=== PATIENT | male | born 1980 | race Two or more races ===

== ENCOUNTER 2020-05-05 13:33 | Emergency (ER) | payer OTHER ==
[~2020-05-05] VITALS: Ht 154.9 cm; Wt 72.7 kg
[2020-05-05] MEDS ORDERED: IV NORMAL SALINE 1000ML BAG 1,000 ML IV ONE (14:15)
[2020-05-05] MEDS ORDERED: KETOROLAC 15 MG/ML VIAL. IVP ONE (14:30)
[2020-05-05] MEDS ORDERED: ORPHENADRINE CITRATE 60 MG/2 ML VIAL. IV ONE (14:30)
--- NOTE | 2020-05-05 14:46 | EKG ---
[facility] [address] [place] [address] Test Date: 2020-05-05 Test Time: 14:38:59 Pat Name: ABHI TAVAREZ Department: Room: Gender: M Production Assembly Operator: : 1980 Requested By: JOSEFINA WILDER Order Number: [id number] Reading MD: Measurements Intervals [place] Rate: 77 P: 36 ID: [id number] QRS: 24 QRSD: 72 T: 16 QT: 362 QTc: 411 Interpretive Statements SINUS RHYTHM OTHERWISE NORMAL ECG RI6.01 No previous ECG available for comparison
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
[2020-05-05 15:53] LABS: BASO # 0.1 x10^3/uL (0.0-0.2); BASO % 1 % (0-3); EOS # 0.2 x10^3/uL (0.0-0.7); EOS % 3 % (0-3); HEMATOCRIT 45.4 % (39.0-53.0); HEMOGLOBIN 15.6 g/dL (13.0-17.5); LYMPH # 2.4 x10^3/uL (1.0-4.8); LYMPH % 27 % (24-48); MEAN CORPUSCULAR HEMOGLOBIN 28 pg (25-35); MEAN CORPUSCULAR HGB CONC 34 g/dL (31-37); MEAN CORPUSCULAR VOLUME 81 fL (79-100); MONO # 0.9 x10^3/uL (0.0-1.1); MONO % 11 % (0-9); NEUT # 5.3 x10^3/uL (1.8-7.7); NEUT % 59 % (31-73); PLATELET COUNT 287 x10^3/uL (140-400); RED BLOOD COUNT 5.61 x10^6/uL (4.30-5.70); RED CELL DISTRIBUTION WIDTH 13.7 % (11.5-14.5); WHITE BLOOD COUNT 8.9 x10^3/uL (4.0-11.0)
[2020-05-05 16:01] LABS: ALBUMIN 3.7 g/dL (3.4-5.0); ALBUMIN/GLOBULIN RATIO 0.7 (1.0-1.7); CALCIUM 9.1 mg/dL (8.5-10.1); CREATININE 0.9 mg/dL (0.7-1.3); GFR 93.5; MAGNESIUM 2.1 mg/dL (1.8-2.4); POTASSIUM 4.1 mmol/L (3.5-5.1); TOTAL BILIRUBIN 0.5 mg/dL (0.2-1.0); TOTAL PROTEIN 8.7 g/dL (6.4-8.2)
[2020-05-05] MEDS ORDERED: HYDR-2759 PO (16:03)
[2020-05-05] MEDS ORDERED: ORPH100T PO (16:03)
[2020-05-05 16:24] VITALS: BP 108/70
== END 2020-05-05 16:40 | disposition home or self-care (01) ==
LOC: ER 13:33
DX: S16.1XXA Strain of muscle, fascia and tendon at neck level, initial encounter (principal); F07.81 Postconcussional syndrome; I10 Essential (primary) hypertension; R07.89 Other chest pain; R11.10 Vomiting, unspecified; Y99.8 Other external cause status; V03.09XA Pedestrian with other conveyance injured in collision with car, pick-up truck or van in nontraffic accident, initial encounter; Y93.89 Activity, other specified; Y92.488 Other paved roadways as the place of occurrence of the external cause
CPT/HCPCS: 36415; 70450; 71046; 72125; 80053; 82553; 83690; 83735; 84484; 85025; 93005; 99285-25

== ENCOUNTER 2021-06-13 08:46 | Emergency (ER) | payer OTHER ==
[~2021-06-13] VITALS: Ht 157.5 cm; Wt 55.4 kg
[~2021-06-13 08:46] MED LIST: HYDR-2759 PO; ORPH100T PO
[2021-06-13] MEDS ORDERED: IV NORMAL SALINE 1000ML BAG 1,000 ML IV ONE (09:45)
--- NOTE | 2021-06-13 10:08 | PHYS DOC ---
Past Medical History Past Medical History: Hypertension Past Surgical History: No Surgical History Smoking Status: Never Smoker Alcohol Use: None Drug Use: None General Adult EDM: Chief Complaint: HEADACHE HPI: HPI: HPI limited to partnership marketing manager service, patient is Tristanian speaking only, used hospital partnership marketing manager on phone. Patient is a 40-year-old male who presents to the emergency department complaining of headache to the back of his head since May 02. Patient denies thunderclap onset, reports pain is currently a 6 out of 10. States the light hurts his eyes. Denies other vision changes or disturbances. Denies dizziness, syncopal or near syncopal episodes. Patient denies nausea, vomiting, diarrhea, abdominal pain, constipation. Patient denies chest pains, chest palpitations, chest or nasal congestion. Patient denies sore throat, denies ear pain. Patient denies recent fever or chills. Patient denies a surgical history. Does not smoke does not drink and does not use illicit drugs. Patient reports taking 40 mg of propanolol for hypertension, primary care physician is Dr. Moeller. Patient denies this being the worst headache of his life. Has not taken [id number] or prescription pain medications for this headache, has not tried nonpharmacological pain relief methods at home. Has not been evaluated for this headache since onset on May 02, 2021. Review of Systems: Review of Systems: 14 body systems of review of systems have been reviewed. See HPI for pertinent positives and negative responses, otherwise all other systems are negative, nonpertinent or noncontributory. Constitutional: Negative except as outlined in HPI above. Skin: Negative except as outlined in HPI above. Eyes: Negative except as outlined in HPI above. HENT: Negative except as outlined in HPI above. Respiratory: Negative except as outlined in HPI above. Cardiovascular: Negative except as outlined in HPI above. GI: Negative except as outlined in HPI above. : Negative except as outlined in HPI above. Musculoskeletal: Negative except as outlined in HPI above. Integument: Negative except as outlined in HPI above. Neurologic: Negative except as outlined in HPI above. Endocrine: Negative except as outlined in HPI above. Lymphatic: Negative except as outlined in HPI above. Psychiatric: Negative except as outlined in HPI above. Heart Score: C/O Chest Pain: No Risk Factors: Risk Factors: DM, Current or recent (<one month) smoker, HTN, HLP, family history of CAD, obesity. Risk Scores: Score 0 - 3: 2.5% MACE over next 6 weeks - Discharge Home Score 4 - 6: 20.3% MACE over next 6 weeks - Admit for Clinical Observation Score 7 - 10: 72.7% MACE over next 6 weeks - Early Invasive Strategies Current Medications: Current Medications Medications (Trade) Dose Ordered Sig/Joey Start Time Stop Time Status Last Admin Dose Admin Diphenhydramine HCl (Benadryl) 25 mg 1X ONCE 06/13/21 10:15 06/13/21 10:16 06/13/21 09:55 25 MG Fentanyl Citrate (Fentanyl 2ml Vial) 50 mcg 1X ONCE 06/13/21 10:15 06/13/21 10:16 06/13/21 09:56 50 MCG Metoclopramide HCl (Reglan Vial) 10 mg 1X ONCE 06/13/21 10:15 06/13/21 10:16 06/13/21 09:55 10 MG Sodium Chloride 1,000 ml @ 1,000 mls/hr 1X ONCE 06/13/21 09:45 06/13/21 10:44 06/13/21 09:53 1,000 MLS/HR Allergies: Allergies: Allergies Coded Allergies Type Severity Reaction Last Updated Verified No Known Drug Allergies 05/05/20 No Physical Exam: PE: Constitutional: Well developed, well nourished, no acute distress, non-toxic appearance. 40-year-old male in no apparent distress. HENT: Normocephalic, atraumatic. Oral mucosa moist, oropharynx moist, pink, no deep tissue infectious process appreciated, patient speaking in normal voice t ones, no drooling, no trismus, no lymphadenopathy of the head and neck appreciated, bilateral TMs intact and within normal limits. Eyes: Conjunctiva normal, no discharge. No scleral icterus. Neck: Normal range of motion, no stridor. There is no nuchal rigidity, no meningismus signs. Cardiovascular: No cyanosis appreciated, distal cap refill less than 2 seconds. Lungs & Thorax: Patient is in no respiratory distress, no audible adventitious lung sounds appreciated. Abdomen: Nontender, no abnormalities noted. Skin: Warm, dry, no erythema, no rash. Back: No tenderness, no deformities. Extremities: No tenderness, no cyanosis, no clubbing, ROM intact, no edema. Neurologic: Alert and oriented X 3, normal motor function, normal sensory function, no focal deficits noted. Psychologic: Affect normal, judgement normal, mood normal. Current Patient Data: Vital Signs: Vital Signs Date Time Temp Pulse Resp B/P (MAP) Pulse Ox O2 Delivery O2 Flow Rate FiO2 06/13/21 09:56 18 94 Room Air 06/13/21 09:10 97.6 77 132/91 (105) 97.6 EKG: EKG: [] Radiology/Procedures: Radiology/Procedures: REASON: Severe headache PROCEDURE: CT HEAD WO CONTRAST INDICATION: Reason: Severe headache / Spl. Instructions: / History: COMPARISON: April 2020 TECHNIQUE: Axial CT images obtained through the head without intravenous contrast. One or more of the following individualized dose reduction techniques were utilized for this examination: 1. Automated exposure control; 2. Adjustment of the mA and/or kV according to patient size; 3. Use of iterative reconstruction technique. FINDINGS: No intracranial hemorrhage. No significant midline shift. Ventricles and sulci are unremarkable. No acute osseous abnormality. IMPRESSION: * No acute intracranial hemorrhage. Electronically signed by: Geoffrey Gore MD (06/13/2021 10:29 AM) [id number] Course & Med Decision Making: Course & Med Decision Making Pertinent Labs and Imaging studies reviewed. (See chart for details) 40-year-old male, vital signs reviewed, presents emerged from concerning headache since May 02, 2021. Physical examination is unremarkable, patient does complain of photophobia. Patient is not hypertensive, not tachycardic, is not febrile. Patient does explain this is not the worst headache of his life however in lieu of using partnership marketing manager service for Tristanian interpretation the was communication difficulties, will order CT head without contrast, saline lock, normal saline, Benadryl, Reglan, fentanyl for pain. Will reduce lights in the room related to photophobia, will reevaluate after period of time. Patient CT scan is nonconcerning, upon reevaluation of the patient, patient reports he feels much better now. Patient reports headache is a 0 out of 10, discussed with patient follow-up with primary care, return to ER precautions and concerns were reviewed, patient gave verbal understanding of and is amenable to ED discharge planning. Discussed with the patient all findings and diagnostic testing as well as the need to follow-up with their primary care provider for further evaluation and treatment or return to the ED if any new or worsening symptoms. Strict return precautions were also discussed at length, the patient voiced understanding and agreement with the discharge planning. The patient was nontoxic in appearance, in no apparent distress, and hemodynamically stable at the time of disposition. Dragon Disclaimer: Dragon Disclaimer: This electronic medical record was generated, in whole or in part, using a voice recognition dictation system. Departure Departure Impression: Primary Impression: Headache Qualified Codes: R51.9 - Headache, unspecified Disposition: HOME / SELF CARE / HOMELESS Condition: GOOD Referrals: UNKNOWN PCP NAME (PCP) Patient Instructions: General Headache Without Cause Additional Instructions: You were seen today in the emergency department for headache. A CT scan was done today did not show any concerning findings. You were given headache medication in the emergency department which you reported relieve your headache. You may use [id number] Tylenol or Motrin for any return of headaches. Please follow-up with your primary care doctor for any ongoing or returning headaches. Please continue to take all of your home medications as prescribed by your primary care doctor. thank you for visiting our Emergency Department. It was a pleasure taking care of you today in the emergency department and we appreciate you trusting us with your care. If any additional problems come up don't hesitate to return to visit us. Please follow up with your primary care provider so they can plan additional care if needed and know about the problem that you had. If symptoms worsen come back to the Emergency Department. Any concerning symptoms that start such as chest pain, shortness of air, weakness or numbness on one side of the body, running high fevers or any other concerning symptoms return to the ER. JOSEFINA GUTIERREZ APRN Jun 13, 2021 10:08
[2021-06-13] MEDS ORDERED: fentaNYL PF VIAL 100 MCG/2 ML VIAL IVP ONE (10:15)
[2021-06-13] MEDS ORDERED: diphenhydrAMINE 50 MG/ML VIAL IVP ONE (10:15)
[2021-06-13] MEDS ORDERED: METOCLOPRAMIDE HCL 10 MG/2 ML VIAL. IVP ONE (10:15)
--- NOTE | 2021-06-13 10:32 | RAD ---
INDICATION: Reason: Severe headache / Spl. Instructions: / History: COMPARISON: April 2020 TECHNIQUE: Axial CT images obtained through the head without intravenous contrast. One or more of the following individualized dose reduction techniques were utilized for this examinat ion: 1. Automated exposure control; 2. Adjustment of the mA and/or kV according to patient size; 3 . Use of iterative reconstruction technique. FINDINGS: No intracranial hemorrhage. No significant midline shift. Ventricles and sulci are unremarkable. No acute osseous abnormality. IMPRESSION: * No acute intracranial hemorrhage. Electronically signed by: Geoffrey Gore MD (06/13/2021 10:29 AM) [id number]
[2021-06-13 12:12] VITALS: BP 110/74
== END 2021-06-13 12:15 | disposition home or self-care (01) ==
LOC: ER 08:46
DX: R51.9 Headache, unspecified (principal); I10 Essential (primary) hypertension
CPT/HCPCS: 70450; 96361; 96374; 96375; 99285; J1200; J2765; J3010; J7030

== ENCOUNTER 2021-08-12 13:16 | Emergency (ER) | payer OTHER ==
[~2021-08-12] VITALS: Ht 160 cm; Wt 69.0 kg
[~2021-08-12 13:16] MED LIST changes: +SILV50CR31 TP
--- NOTE | 2021-08-12 14:11 | PHYS DOC ---
Past Medical History Past Medical History: Hypertension (ALFONSODAVIS [place] [facility]) Past Surgical History: No Surgical History ([facility]ONSODAVIS [place] [facility]) Smoking Status: Never Smoker Alcohol Use: None Drug Use: None (DAVIS CASTELLANOS [place] [facility]) General Adult EDM: Chief Complaint: COUGH HPI: HPI: Patient is a 40 year old male with history of hypertension presenting to the ED today complaining of a cough, weakness, chills, symptoms began 3 days ago. Patient denies any fever, shortness of breath. (DAVIS CASTELLANOS [place] [facility]) Review of Systems: Review of Systems: Constitutional: Reports chills, generalized weakness Eyes: Denies change in visual acuity. [] HENT: Denies nasal congestion or sore throat. [] Respiratory: Reports cough, denies shortness of breath. [] Cardiovascular: Denies chest pain or edema. [] GI: Denies abdominal pain, nausea, vomiting, bloody stools or diarrhea. [] : Denies dysuria. [] Musculoskeletal: Denies back pain or joint pain. [] Integument: Denies rash. [] Neurologic: Denies headache, focal weakness or sensory changes. [] Endocrine: Denies polyuria or polydipsia. [] Lymphatic: Denies swollen glands. [] Psychiatric: Denies depression or anxiety. [] (ALFONSODAVIS [place] [facility]) Heart Score: C/O Chest Pain: N/A Risk Factors: Risk Factors: DM, Current or recent (<one month) smoker, HTN, HLP, family history of CAD, obesity. Risk Scores: Score 0 - 3: 2.5% MACE over next 6 weeks - Discharge Home Score 4 - 6: 20.3% MACE over next 6 weeks - Admit for Clinical Observation Score 7 - 10: 72.7% MACE over next 6 weeks - Early Invasive Strategies (DAVIS CASTELLANOS [facility]) Allergies: Allergies: Allergies Coded Allergies Type Severity Reaction Last Updated Verified No Known Drug Allergies 05/05/20 No (AL[facility]ODAVIS [place] [facility]) Physical Exam: PE: Constitutional: Well developed, well nourished, no acute distress, non-toxic appearance. [] HENT: Normocephalic, atraumatic, bilateral external ears normal, oropharynx moist, no oral exudates, nose normal. [] Eyes: PERRLA, EOMI, conjunctiva normal, no discharge. [] Neck: Normal range of motion, no tenderness, supple, no stridor. [] Cardiovascular:Heart rate regular rhythm, no murmur [] Lungs & Thorax: Bilateral breath sounds clear to auscultation [] Abdomen: Bowel sounds normal, soft, no tenderness, no masses, no pulsatile masses. [] Skin: Warm, dry, no erythema, no rash. [] Back: No tenderness, no CVA tenderness. [] Extremities: No tenderness, no cyanosis, no clubbing, ROM intact, no edema. [] Neurologic: Alert and oriented X 3, normal motor function, normal sensory function, no focal deficits noted. [] Psychologic: Affect normal, judgement normal, mood normal. [] (DAVIS CASTELLANOS APRN) Current Patient Data: Vital Signs: Vital Signs Date Time Temp Pulse Resp B/P (MAP) Pulse Ox O2 Delivery O2 Flow Rate FiO2 08/12/21 13:37 98.2 83 16 140/94 (109) 96 Room Air 98.2 (DAVIS CASTELLANOS APRN) EKG: EKG: [] (DAVIS CASTELLANOS APRN) Radiology/Procedures: Radiology/Procedures: []PROCEDURE: PORTABLE CHEST 1V XR CHEST 1V History: Reason: cough / Spl. Instructions: / History: Comparison: May 05, 2020 Findings: Left retrocardiac opacities. No pleural effusion. No pneumothorax. Normal heart size. Impression: 1. Left basilar opacities, may represent pneumonia or atelectasis. Recommend follow-up after treatment to ensure resolution. Electronically signed by: Baltazar Gamboa DO (08/12/2021 2:19 PM) [id number] DICTATED and SIGNED BY: BALTAZAR GAMBOA DO DATE: 08/12/21 1418 (DAVIS CASTELLANOS APRN) Course & Med Decision Making: Course & Med Decision Making Pertinent Labs and Imaging studies reviewed. (See chart for details) This a 40-year-old male patient presented to the ED today complaining of cough, weakness, chills, symptoms for 3 days Positive rapid COVID test, negative influenza test. Chest x-ray possible left lobe pneumonia. Discharged on doxycycline. Follow-up with PCP next week. (DAVIS CASTELLANOS APRN) Delaney Disclaimer: Delaney Disclaimer: This electronic medical record was generated, in whole or in part, using a voice recognition dictation system. (DAVIS CASTELLANOS APRN) Departure Departure Impression: Primary Impression: COVID-19 Additional Impressions: Fever Qualified Codes: R50.9 - Fever, unspecified Pneumonia of lower lobe of lung Qualified Codes: J18.9 - Pneumonia, unspecified organism Disposition: HOME / SELF CARE / HOMELESS Condition: STABLE Referrals: UNKNOWN PCP NAME (PCP) follow up with your docto in one week Patient Instructions: Pneumonia, Adult Additional Instructions: You were evaluated in the emergency room, you tested positive for COVID-19 and you possibly have pneumonia from COVID. We will put you on antibiotics, ensure you complete them. Please take Tylenol Motrin for pain or fever. Follow-up with your doctor in 1 week Scripts Albuterol Sulfate (Proair Hfa) 8.5 Gm Hfa.aer.ad 2 PUFF IH PRN Q4-6HRS PRN for wheezing for 21 Days, #1 INHALER 0 Refills Prov: DAVIS CASTELLANOS APRN 08/12/21 Benzonatate (BENZONATATE) 100 Mg Capsule 1 CAP PO TID, #30 CAP Prov: DAVIS CASTELLANOS APRN 08/12/21 Doxycycline Hyclate (DOXYCYCLINE HYCLATE) 100 Mg Tablet 1 TAB PO BID, #14 TAB Prov: DAVIS CASTELLANOS APRN 08/12/21 Attending Signature I have participated in the care of this patient and I have reviewed and agree with all pertinent clinical information above including history, exam, and recommendations. (LARRY IVAN DO) DAVIS CASTELLANOS APRN August 12, 2021 14:11 LARRY IVAN DO August 12, 2021 15:28
[2021-08-12 14:13] LABS: INFLUENZA A PATIENT NEGATIVE (NEGATIVE); INFLUENZA B PATIENT NEGATIVE (NEGATIVE)
--- NOTE | 2021-08-12 14:21 | RAD ---
XR CHEST 1V History: Reason: cough / Spl. Instructions: / History: Comparison: May 05, 2020 Findings: Left retrocardiac opacities. No pleural effusion. No pneumothorax. Normal heart size. Impression: 1. Left basilar opacities, may represent pneumonia or atelectasis. Recommend follow-up after treatme nt to ensure resolution. Electronically signed by: Baltazar Gamboa DO (08/12/2021 2:19 PM) [id number]
[2021-08-12] MEDS ORDERED: DOXY100T PO (14:45)
[2021-08-12] MEDS ORDERED: BENZ-8 PO (14:46)
[2021-08-12] MEDS ORDERED: ALBU2.5V8 IH (14:46)
[2021-08-12 14:50] VITALS: BP 125/83
== END 2021-08-12 14:50 | disposition home or self-care (01) ==
LOC: ER 13:16
DX: U07.1 COVID-19 (principal); J18.9 Pneumonia, unspecified organism; I10 Essential (primary) hypertension
CPT/HCPCS: 71045; 87428; 99284